=== PATIENT | male | born 1960 | race Caucasian/White ===

== ENCOUNTER 2017-02-13 13:28 | Emergency (ER) | payer OTHER ==
[~2017-02-13] VITALS: Ht 185.4 cm; Wt 83.0 kg
--- OUTSIDE RECORDS SUMMARY | 2017-02-13 13:37 | XMS REPORT ---
Author Author LESLY VALENCIA Organization [employer] Address Unknown Phone Unavailable Care Team Providers Care Knifer Up Name Role Phone LESLY VALENCIA CP Unavailable Allergies, Adverse Reactions, Alerts Substance Reaction Event Type N.K.D.A. Info Not Available Non Drug Allergy Problems Problem Type Condition Code Onset Dates Condition Status Assessment Encounter for dental examination Z01.20 Active Assessment Dental caries on smooth surface penetrating into pulp K02.63 Active Medications Medication Code System Code Instructions Start Date End Date Status Dosage Naproxen [facility] [address]-86 500 MG Orally every 12 hrs Take two tabs immediately then 1 tablet as needed Procedures Procedure Coding System Code Date INTRAORL-PERIAPICAL 1 FILM 20130 CPT-4 D0220 Jun 28, 2015 EXTRAC ERUPTED TOOTH/EXPOSED ROOT CPT-4 D7140 Jun 28, 2015 LTD ORAL EVALUATION - PROBLEM FOCUS CPT-4 D0140 Jun 28, 2015 EXTRAC ERUPTED TOOTH/EXPOSED ROOT CPT-4 D7140 Jun 28, 2015 Vital Signs Date/Time: Jun 28, 2015 Blood Pressure Diastolic 85 mmHg Blood Pressure Systolic 138 mmHg Cardiac Monitoring Heart Rate 76 bpm Results No Known Results Summary Purpose [employer] Submission
--- OUTSIDE RECORDS SUMMARY | 2017-02-13 13:37 | XMS REPORT ---
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 Info Not Available Non Drug Allergy Problems Problem Type Condition Code Onset Dates Condition Status Assessment Ventral hernia without obstruction or gangrene K43.9 Active Medications No Known Medications Procedures Procedure Coding System Code Date Office Visit, Est Pt., Level 4 CPT-4 00575 Jan 04, 2016 Vital Signs Date/Time: Jan 04, 2016 Cardiac Monitoring Heart Rate 76 bpm Weight 182.7 lbs Height 73 in BMI 24.10 Index Blood Pressure Diastolic 74 mmHg Blood Pressure Systolic 118 mmHg Results No Known Results Summary Purpose [employer] Submission
--- OUTSIDE RECORDS SUMMARY | 2017-02-13 13:37 | XMS REPORT ---
Author Author DAMIAN EGAN [facility] Address [address] [place] [address] Care Team Providers Care Licensed Mental Health Counselor Name Role Phone DAMIAN EGAN Unavailable PROBLEMS No Known Problems ALLERGIES Substance Reaction Event Type Date Status N.K.D.A. Unknown Non Drug Allergy Dec, Unknown SOCIAL HISTORY No smoking Hx information available PLAN OF CARE VITAL SIGNS Height 73 in 2016-01-27 Weight 182.2 lbs 2016-01-27 Heart Rate 67 bpm 2016-01-27 Respiratory Rate 16 2016-01-27 BMI 24.04 kg/m2 2016-01-27 Blood pressure systolic 122 mmHg 2016-01-27 Blood pressure diastolic 72 mmHg 2016-01-27 MEDICATIONS No Known Medications RESULTS No Results PROCEDURES Procedure Date Ordered Related Diagnosis Body Site Office Visit, Est Pt., Level 3 Jan 27, 2016 IMMUNIZATIONS No Known Immunizations
--- NOTE | 2017-02-13 14:01 | ED Lower Extremity ---
General Chief Complaint: Lower Extremity Stated Complaint: REBAR DROPPED ON FOOT AT WORK LT FOOT Nursing Triage Note: pt reports a bundle of rebar fell on hit l foot. pt reports pain and tingling to l foot. pt denies any other injury or hitting head. Nursing Sepsis Screen: No Definite Risk Source: patient Exam Limitations: no limitations History of Present Illness Time seen by provider: 13:57 Initial Comments The patient is a 56-year-old white male who presents with complaint of pain in his left foot. 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 A maher was moving a bundle of rebar with an estimated weight of 3000 pounds. The reach was exceeded and the bundle dropped about 6-8 inches across the dorsum of his left foot. There was expected pain and he notes numbness and tingling as well. Onset: just prior to arrival Pain/Injury Location: left foot Method of Injury: direct blow Allergies and Home Medications Allergies Coded Allergies: No Known Drug Allergies (Unverified , 02/13/17) Home Medications No Active Prescriptions or Reported Meds Constitutional: see HPI EENTM: no symptoms reported Respiratory: no symptoms reported Cardiovascular: no symptoms reported Gastrointestinal: no symptoms reported Genitourinary: no symptoms reported Musculoskeletal: see HPI Skin: no symptoms reported Psychiatric/Neurological: No Symptoms Reported Past Stwxiom-Onskmo-Ztvenq Hx Patient Social History Alcohol Use: Occasionally Uses Alcohol Beverage of Choice: Beer Recreational Drug Use: No Smoking Status: Current Everyday Smoker Type Used: Cigarettes Recent Foreign Travel: No Contact w/Someone Who Travel: No Recent Infectious Disease Expo: No Recent Hopitalizations: No Physical Abuse: No Sexual Abuse: No Mistreated: No Seasonal Allergies Seasonal Allergies: No Surgeries History of Surgeries: Yes (hernia repair) Respiratory History of Respiratory Disorde: No Cardiovascular History of Cardiac Disorders: No Neurological History of Neurological Disord: No Genitourinary History of Genitourinary Disor: No Gastrointestinal History of Gastrointestinal Di: No Musculoskeletal History of Musculoskeletal Dis: No Endocrine History of Endocrine Disorders: No HEENT History of HEENT Disorders: No Cancer History of Cancer: No Psychosocial History of Psychiatric Problem: No Suicide Risk Score: 0 Blood Transfusions History of Blood Disorders: No Physical Exam Vital Signs Vital Sign - Last 12Hours 02/13/17 13:47 Temp 97.7 Pulse 78 Resp 18 B/P (MAP) 143/105 Pulse Ox 96 Capillary Refill : Less Than 3 Seconds General Appearance: mild distress HEENT: normal ENT inspection Neck: full range of motion Cardiovascular: normal peripheral pulses, regular rate, rhythm, no edema, no gallop, no JVD, no murmur Respiratory: chest non-tender, lungs clear, normal breath sounds, no respiratory distress, no accessory muscle use Comments No swelling or deformity was noted in the left foot. There is a large bunion which he states he inherited from his grandmother. Capillary refill is normal. There is a palpable dorsalis pedis pulse. Progress/Results/Core Measures Results/Orders My Orders Orders - FRANCISCO DE LA CRUZ MD Foot, Left, 3 Views (02/13/17 ) Vital Signs/I&O Vital Sign - Last 12Hours 02/13/17 13:47 Temp 97.7 Pulse 78 Resp 18 B/P (MAP) 143/105 Pulse Ox 96 Blood Pressure Mean: 118 Departure Impression Impression: Primary Impression: Contusion of foot Disposition: HOME, SELF-CARE Condition: Stable/Unchanged Departure-Patient Inst. Decision time for Depature: 14:26 Referrals: NO,LOCAL PHYSICIAN (PCP) Primary Care Physician Patient Instructions: Contusion (DC) Add. Discharge Instructions: All discharge instructions reviewed with patient and/or family. Voiced understanding. Expect tingling into resolve rather quickly. LaCE your boot loosely Scripts No Active Prescriptions or Reported Meds FRANCISCO DE LA CRUZ MD Feb 13, 2017 14:00
--- NOTE | 2017-02-13 14:18 | Diagnostic Imaging Report ---
EXAMINATION: Three views of the left foot. INDICATION: Left foot pain. FINDINGS: There is a prominent hallux valgus. No fracture, dislocation, or radiopaque foreign body is seen. There are spurs projecting laterally from the anterolateral aspect of the calcaneus, which could be degenerative or posttraumatic. IMPRESSION: Hallux valgus. Dictated by: Dictated on workstation # [id number]
[2017-02-13 14:47] VITALS: BP 142/99
== END 2017-02-13 14:46 | disposition home or self-care (01) ==
LOC: ER 13:34
DX: S90.32XA Contusion of left foot, initial encounter (principal); F17.210 Nicotine dependence, cigarettes, uncomplicated; Z87.19 Personal history of other diseases of the digestive system; W20.8XXA Other cause of strike by thrown, projected or falling object, initial encounter; Y92.239 Unspecified place in hospital as the place of occurrence of the external cause; Y92.69 Other specified industrial and construction area as the place of occurrence of the external cause
CPT/HCPCS: 73630; 99283

== ENCOUNTER 2017-03-03 09:03 | Inpatient (IN) | payer OTHER ==
[~2017-03-03] VITALS: Ht 185.4 cm; Wt 80.7 kg
--- OUTSIDE RECORDS SUMMARY | 2017-03-03 09:08 | XMS REPORT | Continuity of Care Document ---
Author Author [facility] Address Unknown Phone Unavailable Allergies Medications Problems Date Dx Coded Attending Type Code Diagnosis Diagnosed By 05/12/2013 AIXA VEGA MD 726.10 DISORDERS OF BURSAE AND TENDONS IN SHOULDER REGION UNSPECIFIED 05/12/2013 AIXA EVGA MD 728.85 MUSCLE SPASM 05/12/2013 AIXA VEGA MD V04.81 FLU SHOT 05/12/2013 AIXA VEGA MD 726.10 TENDONITIS ROTATOR CUFF 05/12/2013 AIXA VEGA MD 728.85 MUSCLE SPASM 05/12/2013 AIXA VEGA MD V04.81 FLU SHOT Procedures Results Encounters ACCT No. Visit Date/Time Discharge Status Pt. Type Provider Facility Loc./Unit Complaint [id number] 2013 08:31:00 2013 23: 59:59 CLS Outpatient AIXA VEGA MD [id number] 05/12/2013 10:35:00 05/12/2013 23: 59:59 CLS Outpatient AIXA VEGA MD
--- NOTE | 2017-03-03 09:15 | ED Fall/Injury ---
General Stated Complaint: PELVIC/HIP INJ Source: patient Exam Limitations: no limitations History of Present Illness Time seen by provider: 09:01 Initial Comments Patient present to ER by private conveyance with coworkers with a chief complaint that just prior to arrival he was unloading wood off the back tractor trailer proximal 6 feet off the ground and jumped off the trailer but when he landed his right leg buckled underneath him and he landed on his right side. He is having a tremendous amount of pain and unable to walk or l sit up. He was brought in the back of truck to the ER and transferred by gennaro and transferred to the ER. He denies previous trauma to that hip and has no significant medical history nor does he follow with a physician or take any medications. He denies allergies. He smokes and drinks about 12 pack a week. He denies recreational drug use. Denies needing anything for pain or nausea at this time. He has sensation in his foot and is able to move it but not his thigh. He says he also scraped up his right elbow but is not having any significant pain there now. He denies striking his head nor loss of consciousness. Staff reports when they transferred him out of the back of truck depressed all over his back and neck and there is no pain. Allergies and Home Medications Allergies Coded Allergies: No Known Drug Allergies (Unverified , 02/13/17) Home Medications Hydrocodone/Acetaminophen 1 Each Tablet, 1 EACH PO Q6H PRN for PAIN, #30 Ref 0 Prescribed by: CHANEL REYES on 03/03/17 1335 Ondansetron HCl 4 Mg Tab, 4 MG PO Q4H PRN for NAUSEA/VOMITING-1ST LINE, #14 Ref 0 Prescribed by: CHANEL REYES on 03/03/17 1335 Constitutional: No chills, No diaphoresis Eyes: Denies Blindness, Denies Blurred Vision Ears, Nose, Mouth, Throat: denies ear pain, denies ear discharge Respiratory: No cough, No short of breath Cardiovascular: No chest pain, No palpitations Gastrointestinal: No abdominal pain, No constipation, No nausea, No vomiting Genitourinary: No discharge, No dysuria Musculoskeletal: see HPI, No back pain, joint pain, joint swelling (rifhr hip) Skin: No pruritus, No rash Psychiatric/Neurological: Denies Headache, Denies Numbness, Denies Paresthesia Past Lphzrti-Yetfat-Smespb Hx Patient Social History Alcohol Beverage of Choice: Beer (12 pack a week) Recreational Drug Use: No Type Used: Cigarettes Recent Hopitalizations: No Seasonal Allergies Seasonal Allergies: No Surgeries History of Surgeries: Yes (hernia repair) Respiratory History of Respiratory Disorde: No Cardiovascular History of Cardiac Disorders: No Neurological History of Neurological Disord: No Genitourinary History of Genitourinary Disor: No Gastrointestinal History of Gastrointestinal Di: No Musculoskeletal History of Musculoskeletal Dis: No Endocrine History of Endocrine Disorders: No HEENT History of HEENT Disorders: No Cancer History of Cancer: No Psychosocial History of Psychiatric Problem: No Blood Transfusions History of Blood Disorders: No Physical Exam Vital Signs Vital Sign - Last 12Hours 03/03/17 09:03 Temp 98.7 Pulse 65 Resp 18 B/P (MAP) 175/88 Pulse Ox 97 Capillary Refill : General Appearance: WD/WN, moderate distress HEENT: PERRL/EOMI, TMs normal, pharynx normal Neck: non-tender, supple Cardiovascular: normal peripheral pulses, regular rate, rhythm Respiratory: chest non-tender, lungs clear, normal breath sounds Peripheral Pulses: 3+ Dorsalis Pedis (R), 3+ Left Dors-Pedis (L) Gastrointestinal: normal bowel sounds, non tender, soft Back: normal inspection, no vertebral tenderness Extremities: no pedal edema, normal capillary refill, other (right leg is externally rotated and unable to move Degner pain at the thigh. He can move his toes and has good sensation however.) Neurologic/Psychiatric: no motor/sensory deficits, alert, oriented x 3 Skin: normal color, warm/dry Brian Coma Score Best Eye Response: (4) Open Spontaneously Best Verbal Response: (5) Oriented Best Motor Response: (6) Obeys Commands [place] Total: 15 Progress/Results/Core Measures Results/Orders Lab Results Laboratory Tests Test 03/03/17 09:52 03/03/17 11:17 Range/Units White Blood Count 8.1 4.3-11.0 10^3/uL Red Blood Count 4.92 4.35-5.85 10^6/uL Hemoglobin 15.1 13.3-17.7 G/DL Hematocrit 45 40-54 % Mean Corpuscular Volume 91 80-99 FL Mean Corpuscular Hemoglobin 31 25-34 PG Mean Corpuscular Hemoglobin Concent 34 32-36 G/DL Red Cell Distribution Width 12.7 10.0-14.5 % Platelet Count 151 130-400 10^3/uL Mean Platelet Volume 11.7 H 7.4-10.4 FL Neutrophils (%) (Auto) 73 42-75 % Lymphocytes (%) (Auto) 15 12-44 % Monocytes (%) (Auto) 10 0-12 % Eosinophils (%) (Auto) 2 0-10 % Basophils (%) (Auto) 1 0-10 % Neutrophils # (Auto) 5.9 1.8-7.8 X 10^3 Lymphocytes # (Auto) 1.2 1.0-4.0 X 10^3 Monocytes # (Auto) 0.8 0.0-1.0 X 10^3 Eosinophils # (Auto) 0.1 0.0-0.3 10^3/uL Basophils # (Auto) 0.1 0.0-0.1 10^3/uL Sodium Level 139 135-145 MMOL/L Potassium Level 4.0 3.6-5.0 MMOL/L Chloride Level 107 98-107 MMOL/L Carbon Dioxide Level 21 21-32 MMOL/L Anion Gap 11 5-14 MMOL/L Blood Urea Nitrogen 11 7-18 MG/DL Creatinine 0.80 0.60-1.30 MG/DL Estimat Glomerular Filtration Rate > 60 BUN/Creatinine Ratio 14 Glucose Level 122 H 70-105 MG/DL Calcium Level 8.7 8.5-10.1 MG/DL Total Bilirubin 0.5 0.1-1.0 MG/DL Aspartate Amino Transf (AST/SGOT) 30 5-34 U/L Alanine Aminotransferase (ALT/SGPT) 30 0-55 U/L Alkaline Phosphatase 50 40-136 U/L Total Protein 6.7 6.4-8.2 GM/DL Albumin 4.0 3.2-4.5 GM/DL Urine Color YELLOW Urine Clarity CLEAR Urine pH 6 5-9 Urine Specific Varina 1.015 L 1.016-1.022 Urine Protein NEGATIVE NEGATIVE Urine Glucose (UA) NEGATIVE NEGATIVE Urine Ketones NEGATIVE NEGATIVE Urine Nitrite NEGATIVE NEGATIVE Urine Bilirubin NEGATIVE NEGATIVE Urine Urobilinogen NORMAL NORMAL MG/DL Urine Leukocyte Esterase NEGATIVE NEGATIVE Urine RBC (Auto) NEGATIVE NEGATIVE Urine RBC NONE /HPF Urine WBC NONE /HPF Urine Squamous Epithelial Cells RARE /HPF Urine Crystals NONE /LPF Urine Bacteria NEGATIVE /HPF Urine Casts NONE /LPF Urine Mucus NEGATIVE /LPF Urine Culture Indicated NO Urine Opiates Screen NEGATIVE NEGATIVE Urine Oxycodone Screen NEGATIVE NEGATIVE Urine Methadone Screen NEGATIVE NEGATIVE Urine Propoxyphene Screen NEGATIVE NEGATIVE Urine Barbiturates Screen NEGATIVE NEGATIVE Ur Tricyclic Antidepressants Screen NEGATIVE NEGATIVE Urine Phencyclidine Screen NEGATIVE NEGATIVE Urine Amphetamines Screen NEGATIVE NEGATIVE Urine Methamphetamines Screen NEGATIVE NEGATIVE Urine Benzodiazepines Screen NEGATIVE NEGATIVE Urine Cocaine Screen NEGATIVE NEGATIVE Urine Cannabinoids Screen POSITIVE H NEGATIVE My Orders Orders - CHANEL REYES J Hip, Right, 2 Views (03/03/17 09:08) Cbc With Automated Diff (03/03/17 09:08) Comprehensive Metabolic Panel (03/03/17 09:08) Drug Screen Stat (Urine) (03/03/17 09:08) Ua Culture If Indicated (03/03/17 09:08) Saline Lock/Iv-Start (03/03/17 09:09) Ketorolac Injection (Toradol Injection) (03/03/17 09:30) Ct Extremity Lower Right Wo (03/03/17 11:19) Fentanyl Injection (Sublimaze Injection (03/03/17 11:30) Hydrocodone/Apap 10/325 Tablet (Lortab 1 (03/03/17 13:45) Ondansetron Oral Dissolve Tab (Zofran (03/03/17 13:45) Medications Given in ED Current Medications Medications Dose Ordered Sig/Jamie Route Start Time Stop Time Status Last Admin Dose Admin Acetaminophen/ Hydrocodone Bitart 1 ea ONCE ONCE PO 03/03/17 13:45 03/03/17 13:46 DC 03/03/17 13:49 1 EA Fentanyl Citrate 50 mcg ONCE ONCE IVP 03/03/17 11:30 03/03/17 11:32 DC 03/03/17 11:35 50 MCG Ketorolac Tromethamine 15 mg ONCE ONCE IM 03/03/17 09:30 03/03/17 09:31 DC 03/03/17 10:47 15 MG Ondansetron HCl 4 mg ONCE ONCE PO 03/03/17 13:45 03/03/17 13:46 DC 03/03/17 13:49 4 MG Vital Signs/I&O Vital Sign - Last 12Hours 03/03/17 09:03 Temp 98.7 Pulse 65 Resp 18 B/P (MAP) 175/88 Pulse Ox 97 Progress Note #1: Time: 13:31 Progress Note Offered the patient observation stay for physical therapy and pain management and the patient declined stating rather go home today. Progress Note #2: Time: 15:03 Progress Note Patient unable to stand up transfer ambulate at all on its own even with the crutches and pain meds. He cannot even put pressure on the contralateral leg because of the pain so we have offered him an observation stay with inpatient medicine for physical therapy and pain management. He is consented this time for this. Diagnostic Imaging Diagonstic Imaging: Xray Plain Films/CT/US/NM/MRI: hip (right) Comments NAME: ANDREW BURRIS [facility] REC#: [id number] PHYSICIAN: CHANEL REYES MD CC: ALTHEA OCHOA MD; CHANEL REYES Page 1 of 1 RADIOLOGY REPORT VIA [facility]. [place], [place] CC: ALTHEA OCHOA MD; CHANEL REYES Page 1 of 1 RADIOLOGY REPORT NAME: ANDREW BURRIS [facility] REC#: [id number] PT STATUS: REG ER : 1960 PHYSICIAN: CHANEL REYES MD ADMIT DATE: 03/03/17/ER Signed Date of Exam: 03/03/17 HIP, RIGHT, 2 VIEWS AP and crosstable lateral views of the right hip. INDICATION: Injury. FINDINGS: There is a nondisplaced intertrochanteric fracture seen. There is no subluxation or dislocation. No radiopaque foreign body is seen. IMPRESSION: Nondisplaced right intertrochanteric fracture. The findings were discussed with Dr. Reyes at time of dictation. Dictated by: Dictated on workstation # [id number] Dict: 03/03/17 1046 Trans: 03/03/17 1055 Interpreted by: ALTHEA OCHOA MD Electronically signed by: ALTHEA OCHOA MD 03/03/17 1055 Reviewed: Reviewed by Me, Discussed w/Radiologist Consults Consults : Consulting Physician: LYDIA DELUNA MD Consults Notes Discussed and reviewed imaging 1110. He is requesting CT of the right femur. 1215: Dr. DELUNA met with the patient and discussed crutches, pain management, toe-touch only and follow-up in the clinic in one week. Departure Communication (Admissions) Time/Spoke to Admitting Phy: 14:[address] Olivas and he recommends pain management and consultation regi in the morning. Impression Impression: Primary Impression: Trochanteric fracture of right femur Qualified Codes: S72.101A - Unspecified trochanteric fracture of right femur, initial encounter for closed fracture Additional Impression: Fall Qualified Codes: W19.XXXA - Unspecified fall, initial encounter Disposition: ADMITTED INPATIENT Condition: Stable Admissions Decision to Admit Reason: Admit from ER (General) Decision to Admit/Date: Mar 03, 2017 Time/Decision to Admit Time: 14:57 Departure-Patient Inst. Referrals: NO,LOCAL PHYSICIAN (PCP/Family) Primary Care Physician Patient Instructions: Femur Fracture (DC) Add. Discharge Instructions: Drink plenty of water and get some MiraLAX or Dulcolax to be taken every day when you're taking the pain meds. Use the pain meds as needed every 6 hours to make yourself functional and mobile. Use the crutches and do not allow your leg on the right side to have any more pressure on it other than toe-touch. Call doctor [facility] at [address] at [phone] today or tomorrow to get an appointment on Friday per Dr. Deluna's instructions. If you're having nausea take Zofran 1 tablet every 4 hours as needed to control the nausea. Try and stay mobile around the house do not lay in bed all day. You may also use Motrin 800 mg every 8 hours and Tylenol 325 or 500 mg every 8 hours. If he develops severe pain that is not controlled by her medicines or intractable nausea and vomiting or fevers or chest pain or shortness of breath return to the ER for evaluation. Opiates can cause drowsiness so he should not operate heavy machinery or take long road trips and do not mix them with alcohol. Scripts Ondansetron HCl (Zofran) 4 Mg Tab 4 MG PO Q4H Y for NAUSEA/VOMITING-1ST LINE, #14 TAB 0 Refills Prov: CHANEL REYES 03/03/17 Hydrocodone/Acetaminophen (Hydrocodon-Acetaminophn 10-325) 1 Each Tablet 1 EACH PO Q6H Y for PAIN, #30 TAB 0 Refills Prov: CHANEL REYES 03/03/17 Work/School Note: Work Release Form Date Seen in the Emergency Department: Mar 03, 2017 Return to Work: Mar 11, 2017 Restrictions: Need Release from Doctor Copy Copies To 1: LYDIA DELUNA MD Copies To 2: FRANCISCO DE LA CRUZ MD, TITUS J Mar 03, 2017 09:15
[2017-03-03] MEDS ORDERED: KETOROLAC 30 MG/ML VIAL IM ONE (09:30)
[2017-03-03 09:57] LABS: BASOPHILS # (AUTO) 0.1 10^3/uL (0.0-0.1); BASOPHILS % (AUTO) 1 % (0-10); EOSINOPHILS # (AUTO) 0.1 10^3/uL (0.0-0.3); EOSINOPHILS % (AUTO) 2 % (0-10); LYMPHOCYTES # (AUTO) 1.2 X 10^3 (1.0-4.0); LYMPHOCYTES % (AUTO) 15 % (12-44); MEAN CORPUSCULAR HEMOGLOBIN 31 PG (25-34); MEAN CORPUSCULAR HGB CONC 34 G/DL (32-36); MEAN CORPUSCULAR VOLUME 91 FL (80-99); MEAN PLATELET VOLUME 11.7 FL (7.4-10.4); MONOCYTES # (AUTO) 0.8 X 10^3 (0.0-1.0); MONOCYTES % (AUTO) 10 % (0-12); NEUTROPHILS # (AUTO) 5.9 X 10^3 (1.8-7.8); NEUTROPHILS % (AUTO) 73 % (42-75); PLATELET COUNT 151 10^3/uL (130-400); RED BLOOD COUNT 4.92 10^6/uL (4.35-5.85); RED CELL DISTRIBUTION WIDTH 12.7 % (10.0-14.5); WHITE BLOOD COUNT 8.1 10^3/uL (4.3-11.0)
[2017-03-03 10:15] LABS: ALANINE AMINOTRANSFERASE 30 U/L (0-55); ANION GAP 11 MMOL/L (5-14); ASPARTATE AMINO TRANSFERASE 30 U/L (5-34); BILIRUBIN,TOTAL 0.5 MG/DL (0.1-1.0); BLOOD UREA NITROGEN 11 MG/DL (7-18); BUN/CREATININE RATIO 14; CALCIUM 8.7 MG/DL (8.5-10.1); CARBON DIOXIDE 21 MMOL/L (21-32); CHLORIDE 107 MMOL/L (98-107); GFR ESTIMATED > 60; GLUCOSE 122 MG/DL (70-105); SODIUM 139 MMOL/L (135-145); TOTAL PROTEIN 6.7 GM/DL (6.4-8.2)
--- NOTE | 2017-03-03 10:52 | Diagnostic Imaging Report ---
AP and crosstable lateral views of the right hip. INDICATION: Injury. FINDINGS: There is a nondisplaced intertrochanteric fracture seen. There is no subluxation or dislocation. No radiopaque foreign body is seen. IMPRESSION: Nondisplaced right intertrochanteric fracture. The findings were discussed with Dr. Reyes at time of dictation. Dictated by: Dictated on workstation # [id number]
[2017-03-03] MEDS ORDERED: fentaNYL INJECTION 100 MCG/2 ML AMP IVP ONE (11:30)
[2017-03-03 11:31] LABS: BILIRUBIN,URINE NEGATIVE (NEGATIVE); KETONES,URINE NEGATIVE (NEGATIVE); LEUKOCYTE ESTERASE ,URINE NEGATIVE (NEGATIVE); NITRITE,URINE NEGATIVE (NEGATIVE); PH,URINE 6 (5-9); PROTEIN,URINE NEGATIVE (NEGATIVE); UROBILINOGEN,URINE NORMAL (NORMAL)
[2017-03-03 11:39] LABS: SQUAMOUS EPITHELIAL CELL,UR RARE /HPF
--- NOTE | 2017-03-03 12:06 | Diagnostic Imaging Report ---
PROCEDURE: CT right lower extremity without contrast. TECHNIQUE: An axially acquired CT was obtained through the right lower extremity without intravenous contrast. Coronal and sagittal reformations were also performed. INDICATION: Right hip injury. FINDINGS: There is a right intertrochanteric fracture seen with no significant displacement. There is comminution noted with minimal displacement at the level of the greater trochanter. The femoral head and femoral shaft appear unremarkable. There is no subluxation or dislocation. No radiopaque foreign body is seen. IMPRESSION: Right intertrochanteric fracture with mild displacement and comminution at the greater trochanter level. Dictated by: Dictated on workstation # [id number]
[2017-03-03] MEDS ORDERED: ONDN4T PO (13:35)
[2017-03-03] MEDS ORDERED: HYDR-3820 PO (13:35)
[2017-03-03] MEDS ORDERED: HYDROcodone/APAP 10 MG/325 MG (LORTAB) TAB PO ONE (13:45)
[2017-03-03] MEDS ORDERED: ONDANSETRON 4 MG (ZOFRAN) ORAL DISSOLVE TAB PO ONE (13:45)
[2017-03-03 15:45] VITALS: BP 137/82
[2017-03-03] MEDS ORDERED: HYDROcodone/APAP 10 MG/325 MG (LORTAB) TAB PO PRN (16:15)
[2017-03-03] MEDS ORDERED: ONDANSETRON 4 MG/2 ML (SDV) Z0FRAN IV PRN (16:15)
[2017-03-03] MEDS ORDERED: fentaNYL INJECTION 100 MCG/2 ML AMP IV PRN (16:15)
--- OUTSIDE RECORDS SUMMARY | 2017-03-03 16:23 | XMS REPORT | Continuity of Care Document ---
Author Author [facility] Address Unknown Phone Unavailable Allergies Medications Problems Date Dx Coded Attending Type Code Diagnosis Diagnosed By 05/12/2013 AIXA VEGA MD 726.10 DISORDERS OF BURSAE AND TENDONS IN SHOULDER REGION UNSPECIFIED 05/12/2013 AIXA VEGA MD 728.85 MUSCLE SPASM 05/12/2013 AIXA VEGA MD V04.81 FLU SHOT 05/12/2013 AIXA VEGA MD 726.10 TENDONITIS ROTATOR CUFF 05/12/2013 AIXA VEGA MD 728.85 MUSCLE SPASM 05/12/2013 AIXA VEGA MD V04.81 FLU SHOT Procedures Results Encounters ACCT No. Visit Date/Time Discharge Status Pt. Type Provider Facility Loc./Unit Complaint [id number] 2013 08:31:00 2013 23: 59:59 CLS Outpatient AIXA VEGA MD [id number] 05/12/2013 10:35:00 05/12/2013 23: 59:59 CLS Outpatient AIXA VEAG MD
[2017-03-03] MEDS ORDERED: INFLUENZA TRIvalent 2017-2018 0.5 ML/45 MCG SYR IM ONE (16:45)
[2017-03-03 20:13] VITALS: BP 121/66
[2017-03-03] MEDS: CATHETER FLUSH 10 ML SYR IV PRN (20:46)
[2017-03-03] MEDS: fentaNYL INJECTION 100 MCG/2 ML AMP IV PRN (20:46)
[2017-03-03] MEDS: HYDROcodone/APAP 10 MG/325 MG (LORTAB) TAB PO PRN (23:51)
[2017-03-04 00:30] VITALS: BP 126/68
[2017-03-04] MEDS: fentaNYL INJECTION 100 MCG/2 ML AMP IV PRN ×6 (04:05→19:01)
[2017-03-04] MEDS: CATHETER FLUSH 10 ML SYR IV PRN (04:29)
[2017-03-04] MEDS: NS IV 1000 ML 1,000 ML IV SCH ×2 (04:29→14:19)
[2017-03-04 04:45] VITALS: BP 138/77
[2017-03-04 06:26] LABS: BASOPHILS % (AUTO) 0 % (0-10); EOSINOPHILS # (AUTO) 0.1 10^3/uL (0.0-0.3); EOSINOPHILS % (AUTO) 2 % (0-10); LYMPHOCYTES # (AUTO) 1.2 X 10^3 (1.0-4.0); LYMPHOCYTES % (AUTO) 13 % (12-44); MEAN CORPUSCULAR HEMOGLOBIN 31 PG (25-34); MEAN CORPUSCULAR HGB CONC 34 G/DL (32-36); MEAN CORPUSCULAR VOLUME 92 FL (80-99); MEAN PLATELET VOLUME 11.9 FL (7.4-10.4); MONOCYTES # (AUTO) 1.2 X 10^3 (0.0-1.0); MONOCYTES % (AUTO) 14 % (0-12); NEUTROPHILS # (AUTO) 6.1 X 10^3 (1.8-7.8); NEUTROPHILS % (AUTO) 70 % (42-75); PLATELET COUNT 139 10^3/uL (130-400); RED CELL DISTRIBUTION WIDTH 12.7 % (10.0-14.5); WHITE BLOOD COUNT 8.6 10^3/uL (4.3-11.0)
[2017-03-04 06:47] LABS: ANION GAP 7 MMOL/L (5-14); BLOOD UREA NITROGEN 11 MG/DL (7-18); BUN/CREATININE RATIO 14; CALCIUM 9.1 MG/DL (8.5-10.1); CARBON DIOXIDE 26 MMOL/L (21-32); CHLORIDE 106 MMOL/L (98-107); CREATININE SERUM 0.77 MG/DL (0.60-1.30); GFR ESTIMATED > 60; GLUCOSE 104 MG/DL (70-105); SODIUM 139 MMOL/L (135-145)
--- NOTE | 2017-03-04 07:22 | CONSULTATION REPORT ---
DATE OF SERVICE: 03/03/2017 ORTHOPEDIC CONSULTATION CHIEF COMPLAINT: Fall, hip pain. 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 He is currently awake and alert in the Emergency Department at [facility] with injuries to his right hip. He denies other injuries now, otherwise without complaint. PAST MEDICAL HISTORY: None. PAST SURGERIES: Hernia repair. MEDICATIONS: None. ALLERGIES: None. SOCIAL HISTORY: He smokes less than a pack a day. Drinks alcohol to a small degree daily. Denies any alcohol use today. Has occasional use of marijuana, last time over the weekend. Denies any other drug use. FAMILY HISTORY: Noncontributory. REVIEW OF SYSTEMS: Otherwise unremarkable. ON EXAMINATION: GENERAL: Awake, alert male, denies any injury. EXTREMITIES: Examination of the bilateral upper and left lower extremity fails to showing any swelling, deformity besides acute trauma, right lower extremity. Everywhere else tenderness over his trochanter. His skin is intact distally. Neurovascularly intact. No other focal findings. IMAGING STUDIES: Plain x-ray and CT scan demonstrate a minimally displaced fracture of the greater trochanter that is comminuted. It extends down towards the base and the intertrochanteric neck and lesser trochanter region, but it is not a through and through fracture. IMPRESSION: Right closed greater trochanteric fracture. RECOMMENDATIONS: At this point, a very careful and thorough discussion was held with the patient and the friend that was with him about the importance of being toe touch weight-bearing and that if he steps on this too aggressively, has any further falls or injuries to this, he could displace this fracture and require either open reduction internal fixation and/or hemiarthroplasty or a total. The patient clearly relates understanding and opts for nonoperative treatment. We have discussed at length the possibility of doing preventative internal fixation to prevent progression of his fracture, but at this point, he desires nonoperative care and states that he will be careful. He will follow up next week for repeat imaging. Job ID: [id number] DocumentID: [id number] Dictated Date: 03/03/2017 12:41:12 Veterinary Milk Specialist Date: 03/03/2017 13:07:49 Dictated By: LYDIA WAGNER MD [facility]
[2017-03-04 08:00] VITALS: BP 122/76
[2017-03-04] MEDS: HYDROcodone/APAP 10 MG/325 MG (LORTAB) TAB PO PRN ×2 (09:24→23:28)
--- NOTE | 2017-03-04 10:21 | History & Physical-Hospitalist ---
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 He reports that he is feeling okay other than pain and denies any chest pain or shortness of breath. He does smoke but he does not drink an excessive amount of alcohol every day but he does drink in excess of 1 week and night once weekly. Source: patient Exam Limitations: no limitations Date Seen 03/04/17 Time Seen by Provider: 09:45 Attending Physician Roberto Hansen MD PCP No,Local Physician Referring Physician LYDIA WAGNER MD Date of Admission Mar 03, 2017 at 15:08 Home Medications & Allergies Home Medications Reviewed patient Home Medication Reconciliation Form Allergies Allergies Coded Allergies No Known Drug Allergies (Pdxnaashsr33/2/17) Past Myoagoj-Ykifpc-Rjhwfh Hx Patient Social History Marrital Status: Employed/Student: employed Alcohol Use: Occasionally Uses Number of Drinks Today: 0 Alcohol Beverage of Choice: Beer Recreational Drug Use: Yes Drug of Choice: MARIJUANA Smoking Status: Current Everyday Smoker Type Used: Cigarettes Physical Abuse Screen: No Sexual Abuse: No Recent Foreign Travel: No Contact w/other who traveled: No Recent Hopitalizations: No Recent Infectious Disease Expo: No Seasonal Allergies Seasonal Allergies: No Surgeries Yes (hernia repair) Respiratory No Cardiovascular No Neurological No Genitourinary No Gastrointestinal No Musculoskeletal Yes (CURRENT RT HIP FX) Endocrine History of Endocrine Disorders: No HEENT History of HEENT Disorders: No Cancer No Psychosocial History of Psychiatric Problem: No Integumentary History of Skin or Integumenta: No Blood Transfusions History of Blood Disorders: No Family Medical History Family Hx: Cardiovascular disease Diabetes mellitus Glaucoma Neoplasm Review of Systems Constitutional: see HPI EENTM: no symptoms reported Respiratory: no symptoms reported Cardiovascular: no symptoms reported Gastrointestinal: no symptoms reported Genitourinary: no symptoms reported Musculoskeletal: joint pain (right hip pain) Skin: no symptoms reported Psychiatric/Neurological: No Symptoms Reported Physical Exam Physical Exam Vital Signs Vital Sign - Last 12Hours 03/03/17 09:03 Temp 98.7 Pulse 65 Resp 18 B/P (MAP) 175/88 Pulse Ox 97 Capillary Refill : Less Than 3 SecondsLess Than 3 Seconds General Appearance: No Apparent Distress, WD/WN Eyes: Bilateral Eye Normal Inspection, Bilateral Eye PERRL HEENT: PERRL/EOMI, Normal ENT Inspection, Pharynx Normal Neck: Full Range of Motion, Normal Inspection, Non Tender, Supple, Carotid Bruit Respiratory: Chest Non Tender, Lungs Clear, Normal Breath Sounds, No Accessory Muscle Use, No Respiratory Distress Cardiovascular: Regular Rate, Rhythm, No Edema, No Gallop, No JVD, No Murmur, Normal Peripheral Pulses Gastrointestinal: Normal Bowel Sounds, No Organomegaly, No Pulsatile Mass, Non Tender, Soft Back: Normal Inspection, No CVA Tenderness, No Vertebral Tenderness Extremity: Normal Capillary Refill, Normal Inspection, Normal Range of Motion, Non Tender, No Calf Tenderness, No Pedal Edema Neurologic/Psychiatric: Alert, Oriented x3, No Motor/Sensory Deficits, Normal Mood/Affect Skin: Normal Color, Warm/Dry Lymphatic: No Adenopathy Results Results/Procedures Lab Laboratory Tests 03/03/17 09:52 03/04/17 06:13 Assessment/Plan Admission Diagnosis Assessment: s/p right closed greater trochanteric fracture Smoker Alcohol use but does not appear to be at risk for withdrawal Assessment and Plan Plan: Proceed on with surgery repair since benefits outweigh medical risk Incentive spirometry use May need nebulizer treatments but clear to auscultation on exam today Pain control DVT prophylaxis per protocol Clinical Quality Measures DVT/VTE Risk/Contraindication: Risk Factor Score Per Nursin RFS Level Per Nursing on Admit: 4+=Very High JOSE MILLIGAN DO Mar 04, 2017 10:21
[2017-03-04 12:00] VITALS: BP 114/71
[2017-03-04] MEDS ORDERED: MIDAZOLAM 2 MG/2 ML (VERSED) VIAL ONE (14:56)
[2017-03-04] MEDS ORDERED: fentaNYL INJECTION 250 MCG/5 ML AMP ONE (14:56)
[2017-03-04] MEDS ORDERED: proPOfol 200 MG/20 ML (DIPRIVAN) VIAL IV ONE (14:56)
[2017-03-04] MEDS ORDERED: SEVOFLURANE (ULTANE) 15 ML INHAL SOLN ONE ×7 (14:56→17:18)
[2017-03-04] MEDS: LACTATED RINGERS 1,000 ML IV PRN ×2 (15:00→16:50)
--- NOTE | 2017-03-04 15:32 | Progress Note (SOAP) ---
Subjective Time Seen by Provider: 15:30 Subjective/Events-last exam Patient desires to have his hip fixed as we discussed instead of non-operative care. Objective Exam Vital Signs Date Time Temp Pulse Resp B/P (MAP) Pulse Ox O2 Delivery O2 Flow Rate FiO2 03/04/17 12:00 98.4 63 20 114/71 97 Room Air 03/04/17 08:00 98.5 64 20 122/76 97 Room Air 03/04/17 04:45 98.3 67 20 138/77 96 Room Air 03/04/17 00:30 98.5 67 20 126/68 97 Room Air 03/03/17 20:13 98.6 68 20 121/66 97 Room Air 03/03/17 15:45 99 Room Air 03/03/17 15:45 99.3 66 18 137/82 99 Room Air Capillary Refill : Less Than 3 SecondsLess Than 3 Seconds General Appearance: Moderate Distress Results Lab Laboratory Tests 03/04/17 06:13: White Blood Count 8.6, Red Blood Count 4.30L, Hemoglobin 13.3, Hematocrit 40, Mean Corpuscular Volume 92, Mean Corpuscular Hemoglobin 31, Mean Corpuscular Hemoglobin Concent 34, Red Cell Distribution Width 12.7, Platelet Count 139, Mean Platelet Volume 11.9H, Neutrophils (%) (Auto) 70, Lymphocytes (%) (Auto) 13 , Monocytes (%) (Auto) 14H, Eosinophils (%) (Auto) 2, Basophils (%) (Auto) 0, Neutrophils # (Auto) 6.1, Lymphocytes # (Auto) 1.2, Monocytes # (Auto) 1.2H, Eosinophils # (Auto) 0.1, Basophils # (Auto) 0.0, Sodium Level 139, Potassium Level 4.0, Chloride Level 106, Carbon Dioxide Level 26, Anion Gap 7, Blood Urea Nitrogen 11, Creatinine 0.77, Estimat Glomerular Filtration Rate > 60, BUN/ Creatinine Ratio 14, Glucose Level 104, Calcium Level 9.1 Assessment/Plan Assessment/Plan Assess & Plan/Chief Complaint Right Hip Greater Trochanter Fracture/intertroch fracture Closed Plan: Right hip open reduction and internal fixation, with fixation of greater trochanter. Clinical Quality Measures DVT/VTE Risk/Contraindication: Risk Factor Score Per Nursin RFS Level Per Nursing on Admit: 4+=Very High LYDIA WAGNER MD Mar 04, 2017 3:32 pm
[2017-03-04] MEDS ORDERED: ceFAZolin 1,000 MG (ANCEF) VIAL ONE (15:36)
[2017-03-04] MEDS ORDERED: morphine INJ 10 MG/ML 1ML (SYR OR VIAL) ONE (16:20)
[2017-03-04] MEDS ORDERED: ceFAZolin 2 GM/50 ML NS 50 ML IV ONE (16:30)
[2017-03-04] MEDS ORDERED: ROCURONIUM 50 MG/5 ML (ZEMURON) VIAL IV ONE (17:18)
[2017-03-04] MEDS ORDERED: ONDANSETRON 4 MG/2 ML (SDV) Z0FRAN ONE (17:18)
--- NOTE | 2017-03-04 17:48 | Diagnostic Imaging Report ---
INDICATION: Right hip pain. TECHNIQUE: 99.8 seconds of fluoroscopy was used by Dr. eDluna during internal fixation of the proximal right femur. FINDINGS / IMPRESSION: Four digital images submitted from the procedure show fixation hardware securing the proximal femur in good alignment. Dictated by: Dictated on workstation # [id number]
--- NOTE | 2017-03-04 17:50 | Progress Note-Post Operative ---
Post-Operative Progess Note Surgeon (s)/Director Content Marketing (s) Surgeon LYDIA WAGNER MD Director Content Marketing: FATMATA Peters Pre-Operative Diagnosis Right Greater Trochanter Fracture, with inter-troch extension Post-Operative Diagnosis Same Procedure & Operative Findings Date of Procedure 03/04/17 Procedure Performed/Findings ORIF right hip fracture Anesthesia Type GETA Estimated Blood Loss Estimated blood loss (mL): 450 Specimens/Packing Specimens Removed none LYDIA WAGNER MD Mar 04, 2017 5:50 pm
[2017-03-04] MEDS ORDERED: ONDANSETRON 4 MG/2 ML (SDV) Z0FRAN IVP PRN (18:15)
[2017-03-04] MEDS ORDERED: morphine INJ 10 MG/ML 1ML (SYR OR VIAL) IVP PRN (18:15)
[2017-03-04] MEDS ORDERED: KETOROLAC 30 MG/ML VIAL IVP ONE (18:15)
[2017-03-04 18:51] VITALS: BP 165/81
[2017-03-04 20:39] VITALS: BP 152/90
[2017-03-04] MEDS: ceFAZolin 2 GM/50 ML NS 50 ML IV SCH (23:05)
[2017-03-05 00:13] VITALS: BP 133/70
[2017-03-05] MEDS: NS IV 1000 ML 1,000 ML IV SCH ×3 (01:33→23:17)
[2017-03-05] MEDS: fentaNYL INJECTION 100 MCG/2 ML AMP IV PRN ×3 (01:34→16:48)
[2017-03-05] MEDS: IBUPROFEN 800 MG (MOTRIN) TAB PO PRN ×2 (03:58→14:43)
[2017-03-05 04:27] VITALS: BP 133/71
[2017-03-05 06:24] LABS: MEAN PLATELET VOLUME 12.4 FL (7.4-10.4); RED BLOOD COUNT 3.31 10^6/uL (4.35-5.85); RED CELL DISTRIBUTION WIDTH 12.2 % (10.0-14.5); WHITE BLOOD COUNT 8.1 10^3/uL (4.3-11.0)
--- NOTE | 2017-03-05 06:30 | Progress Note (SOAP) ---
Subjective Time Seen by Provider: 06:29 Subjective/Events-last exam Pain ok, can move leg better. Wants to go home, but hasn't been up with PT or out of bed at all. Objective Exam Vital Signs Date Time Temp Pulse Resp B/P (MAP) Pulse Ox O2 Delivery O2 Flow Rate FiO2 03/05/17 04:27 100.4 86 20 133/71 97 Room Air 03/05/17 03:58 100.4 03/05/17 00:13 100.3 82 20 133/70 97 Room Air 03/04/17 21:00 Room Air 03/04/17 20:39 97.2 71 20 152/90 97 Room Air 03/04/17 19:06 Room Air 03/04/17 18:51 98.0 73 18 165/81 95 Room Air 03/04/17 12:00 98.4 63 20 114/71 97 Room Air 03/04/17 08:00 98.5 64 20 122/76 97 Room Air Capillary Refill : Less Than 3 SecondsLess Than 3 Seconds General Appearance: No Apparent Distress Respiratory: No Accessory Muscle Use, No Respiratory Distress Cardiovascular: Regular Rate, Rhythm Gastrointestinal: soft Extremity: Normal Capillary Refill, No Calf Tenderness, No Pedal Edema Neurologic/Psychiatric: Alert, Oriented x3, No Motor/Sensory Deficits Results Lab Laboratory Tests 03/05/17 05:56: White Blood Count 8.1, Red Blood Count 3.31L, Hemoglobin 10.4#L, Hematocrit 31L , Mean Corpuscular Volume 94, Mean Corpuscular Hemoglobin 31, Mean Corpuscular Hemoglobin Concent 34, Red Cell Distribution Width 12.2, Platelet Count 130, Mean Platelet Volume 12.4H Assessment/Plan Assessment/Plan Assess & Plan/Chief Complaint Right Hip Greater Trochanter Fracture/intertroch fracture Closed S/P ORIF Plan: Up with PT, maybe home tmrw, see how he does. Clinical Quality Measures DVT/VTE Risk/Contraindication: Risk Factor Score Per Nursin RFS Level Per Nursing on Admit: 4+=Very High LYDIA WAGNER MD Mar 05, 2017 6:30 am
[2017-03-05] MEDS: ceFAZolin 2 GM/50 ML NS 50 ML IV SCH ×2 (06:33→14:43)
[2017-03-05 06:37] LABS: ALANINE AMINOTRANSFERASE 20 U/L (0-55); ANION GAP 8 MMOL/L (5-14); ASPARTATE AMINO TRANSFERASE 37 U/L (5-34); BLOOD UREA NITROGEN 9 MG/DL (7-18); BUN/CREATININE RATIO 12; CARBON DIOXIDE 25 MMOL/L (21-32); CHLORIDE 104 MMOL/L (98-107); CREATININE SERUM 0.76 MG/DL (0.60-1.30); GFR ESTIMATED > 60; GLUCOSE 102 MG/DL (70-105); POTASSIUM 3.7 MMOL/L (3.6-5.0); SODIUM 137 MMOL/L (135-145); TOTAL PROTEIN 5.1 GM/DL (6.4-8.2)
[2017-03-05 06:47] LABS: ALBUMIN 3.2 GM/DL (3.2-4.5)
[2017-03-05 07:47] VITALS: BP 113/56
[2017-03-05] MEDS: HYDROcodone/APAP 10 MG/325 MG (LORTAB) TAB PO PRN ×4 (07:54→23:03)
[2017-03-05] MEDS: NICOTINE 21 MG (NICODERM) PATCH TD SCH (08:31)
[2017-03-05] MEDS: diphenhydrAMINE 25 MG TAB (BENADRYL) PO PRN ×3 (08:31→23:05)
--- NOTE | 2017-03-05 09:27 | OPERATIVE REPORT ---
DATE OF SERVICE: 03/04/2017 PREOPERATIVE DIAGNOSIS: Right closed greater trochanteric hip fracture with intertrochanteric extension, minimally to nondisplaced. POSTOPERATIVE DIAGNOSIS: Right closed greater trochanteric hip fracture with intertrochanteric extension, minimally to nondisplaced. PROCEDURE PERFORMED: Open reduction internal fixation of right intertrochanteric hip fracture and fixation of greater trochanter fracture. IMPLANTS USED: Synthes DHS 4-hole screw and sideplate and Synthes trochanteric fixation plate and cables and 6.5 screws. SURGEON: Dr. Deluna. VP CARDIOVASCULAR SERVICE LINE: , YOSELYN. GOVERNMENT PROFESSOR: Aid in retraction for the procedure, aid in fracture reduction, implantation of instrumentation and wound closure. ANESTHESIA: General endotracheal. ESTIMATED BLOOD LOSS: 450 mL. IV FLUIDS: Please see anesthesia records. ANTIBIOTICS: Ancef. COMPLICATIONS: None. INDICATIONS FOR PROCEDURE: The patient is a 56-year-old male who was injured on the job. He sustained the fracture above. We discussed nonoperative verses operative treatment. He initially elected for nonoperative care and then had thought about it and elected for operative treatment due to the high risk for displacement. Risks, benefits and alternatives were discussed and he desires to proceed. DESCRIPTION OF PROCEDURE: The patient was taken to the preoperative holding area and brought back to the operative suite. After adequate induction of general anesthetic, preoperative antibiotics, the patient was placed supine on the fracture table, sterilely prepped and draped to the right leg and a standard direct lateral approach to hip was carried out. A guide pin was placed with the DHS guide into the central position of the head and then was fashioned to fit just superiorly to the DHS plate as there was not a reasonable combination option. Cables were passed around the femoral neck underneath the lesser trochanter. The plate was temporarily fixed with a holding screw and then wires were tensioned holding the trochanter down and in place. The guide pin was then measured and the lag screw hole was drilled, tapped and 105 mm lag screw was placed. Four-hole sideplate was placed and then it was screwed to the shaft with 42 and 44 mm cortical screws. At this point the trochanteric plate was further fixated into the femoral neck and head with 6.5 mm cancellous screws. Once the final position was checked and hardware was satisfactory the wounds were irrigated and closed in layers. The patient was transferred to the recovery room in stable condition having tolerated the procedure well. Job ID: [id number] DocumentID: [id number] Dictated Date: 03/04/2017 17:53:44 Junior Underwriter Date: 03/05/2017 09:26:09 Dictated By: LYDIA DELUNA MD
--- NOTE | 2017-03-05 10:23 | Physical Therapy Evaluation ---
PT Evaluation-General Medical Diagnosis Admission Date Mar 03, 2017 at 15:08 Medical Diagnosis: Hip fx Onset Date: Mar 03, 2017 Therapy Diagnosis Therapy Diagnosis: weakness, mobility impairments Height/Weight Height (Feet): 6 Height (Inches): 1.00 Weight (Pounds): 178 Weight (Ounces): 0.0 Precautions Precautions/Isolations: Fall Prevention, Standard Precautions Weight Bear Status Right Lower Extremity: Right Weight Bearing/Tolerated Referral Physician: Derek Mendez Reason for Referral: Evaluation/Treatment Medical History Pertinent Medical History: Smoking Additional Medical History Surg: Hernia repair Current History Fell off [employer] 03/03, admitted to ER for R greater trochanteric hip fx Reviewed History: Yes Social History Home: Single Level Current Living Status: Significant Other Entry Into Home: Level Entry Prior/Core FIM Prior Level of Function Functional [place] Measure 0=Not Assessed/NA 4=Minimal Assistance 1=Total Assistance 5=Supervision or Setup 2=Maximal Assistance 6=Modified [place] 3=Moderate Assistance 7=Complete [place] Bed Mobility: 7 Transfers (B,C,W/C) (FIM): 7 Gait: 7 Locomotion: 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 Pt was sitting at EOB with nurse call, phone, all needs met post tx, family in room. Pain Numeric Pain Scale: 5-Moderate Pain Location Body Site: Thigh (right) Pain Description: Ache Pt/Family Goals To return home with independence with mobility Objective Patient Orientation: Normal For Age Attachments: IV ROM/Strength Strenght Lower Extremities Left LE grossly 5/5 throughout all motions. Right LE not tested due to fx. Neuromuscular (Tone, Coordination, Reflexes) not tested Sensory Vision: Functional Hearing: Functional Sensation Right Upper Extremit: Intact Sensation Left Upper Extremity: Intact Sensation Right Lower Extremit: Intact Sensation Left Lower Extremity: Intact Transfers Functional [place] Measure 0=Not Assessed/NA 4=Minimal Assistance 1=Total Assistance 5=Supervision or Setup 2=Maximal Assistance 6=Modified [place] 3=Moderate Assistance 7=Complete [place] Transfers (B, C, W/C) (FIM): 6 Scootin Rollin Supine to/from Sit: 6 Sit to/from Stand: 6 Gait Mode of Locomotion: Walk Anticipated Mode of Locomotion: Walk Gait (FIM): 5 Distance (FIM): 3=150 ft Distance: 250' Gait Level of Assist: 5 Gait Persons Needed: 1 Gait Assistive Device: FWW Comments/Gait Description Pt ambulates 250' with supervision for safety. Pt uses FWW and has slow, antalgic gait. Pt appears steady and has no LOB. Balance Sitting Static: Good Sitting Dynamic: Good Standing Static: Good Standing Dynamic: Good Treatment Pt completes (GS, LAQ, hip flexion and adduction exercises in sitting position) x10 for functional LE strengthening. Assessment/Needs Pt has decreased strenth, gait and activity tolerance due to fx and pain. Rehab Potential: Good PT Short Term Goals Short Term Goals Time Frame: Mar 12, 2017 Transfers (B,C,W/C) (FIM): 7 Gait (FIM): 6 Distance (FIM): 3=150 ft Gait Distance Comment: 450' Gait Level of Assist: 6 Gait Assistive Device: FWW Stairs (FIM): 6 # of Steps: 4 Stairs Level of Assist: 6 PT Plan Problem List Problem List: Activity Tolerance, Functional Strength, Safety, Balance, Gait, Transfer, ROM Treatment/Plan Treatment Plan: Continue Plan of Care Treatment Plan: Bed Mobility, Education, Functional Activity Edd, Functional Strength, Gait, Therapeutic Exercise, Transfers Treatment Duration: Mar 12, 2017 Frequency: 11 times per week Estimated Hrs Per Day: .25 hour per day (15-30') Patient and/or Family Agrees t: Yes Safety Risks/Education Patient Education: Gait Training, Transfer Techniques, Reviewed Precautions, Correct Positioning, Safety Issues Teaching Recipient: Patient Teaching Methods: Demonstration, Discussion Response to Teaching: Verbalize Understanding, Reinforcement Needed Discharge Recommendations Plan Patient will perform bed mobility and transfer training, balance and endurance training, functional strengthening, stair training, gait training, and education , to improve functional mobility and independence at home. Therapy D/C Recommendations: Home w/ Family Support Time/GCodes Time In: 1000 Time Out: 1016 Total Billed Treatment Time: 16 Total Billed Treatment 1 visit 16 EVL G Codes Necessary: Yes PT/OT Therapy GCodes Therapy Functional Limitation: Physical Therapy Test(s)/Tool used to determine: Level of Assistance Scale Functional Limitation-Current Charge Code: MOBCUR Modifier: CI Functional Limitation-Goal Charge Code: MOBGOAL Modifier: CI MURIEL CASTLE PT Mar 05, 2017 10:23
--- NOTE | 2017-03-05 11:09 | Progress Note-Hospitalist ---
Progress Note HPI/CC on Admission CC: Right closed greater trochanteric fracture in need of surgery HPI: This is a 56-year-old white male without a local physician that is [place] [address] [place] that has no past medical history the presents following a fall off a tractor trailer when he was loading things up from the bridgework and suffered a right greater trochanteric fracture in need of surgery today at 3 p.m. He reports that he is feeling okay other than pain and denies any chest pain or shortness of breath. He does smoke but he does not drink an excessive amount of alcohol every day but he does drink in excess of 1 week and night once weekly. Progress Notes/Assess & Plan Date Seen 03/05/17 Time Seen by Provider: 10:00 Admission Dx/Process Assessment: s/p right closed greater trochanteric fracture Smoker Alcohol use but does not appear to be at risk for withdrawal Diagonsis/Assessment & Plan Patient doing much better and pain is controlled with pain medication Had an uncomplicated surgery yesterday Hemoglobin did drop but nothing severe enough to require transfusion Walking with physical therapy and doing very well Using IS and up to 3500 No BM yet Urinating fine No fever, vital signs stable, pleasant, improved, at bedside Regular rate and rhythm, clear to auscultation bilaterally no wheezing noted No edema Laboratory Tests 03/05/17 05:56 Assessment: s/p right closed greater trochanteric fracture POD # 1 Smoker Alcohol use but does not appear to be at risk for withdrawal Post op anemia due to acute blood loss from surgery and hip fracture Plan: IS Check labs in am JOSE MILLIGAN DO Mar 05, 2017 11:09
[2017-03-05 12:00] VITALS: BP 130/81
--- NOTE | 2017-03-05 13:41 | Occupational Therapy Eval ---
OT Evaluation-General/PLF Medical Diagnosis Admission Date Mar 03, 2017 at 15:08 Medical Diagnosis: R Hip fx Onset Date: Mar 03, 2017 Therapy Diagnosis Therapy Diagnosis: decr self care Height/Weight Height (Feet): 6 Height (Inches): 1.00 Weight (Pounds): 178 Weight (Ounces): 0.0 Precautions Precautions/Isolations: Fall Prevention, Standard Precautions Safety Interventions: None Weight Bear Status Weight Bearing Restriction: Weight Bearing/Tolerated Location Restriction: RT FOOT "No weight bearing restrictions" Referral Physician: Derek Mendez Referral Reason: Evaluation/Treatment Medical History Pertinent Medical History: Smoking Additional Medical History Hernia repair Current History Pt jumped off the back of a trailer, leg gave out and landed on R side. ORIF R hip on 03-04-17 Reviewed History: Yes Social History Home: Single Level Current Living Status: Significant Other Entry Into Home: Level Entry ADL-Prior Level of Function ADL PLOF Comments Pt reported that he was previously able to manage all of his basic self care needs, chores around the home and work. 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 Pt reported he was in pain but did not rate or describe it. He put admissions assistant light for pain meds Appearance Alert, cooperative Mental Status/Objective Attachments: Saline Lock (x 2) Current Glasses/Contacts: Yes Hand Dominance: Right Upper Extremity ROM Grossly WFL bilat Upper Extremity Strength Grossly 5/5 bilat ADL-Treatment ADL-Current Pt reported that he got a shower this morning and did most of it himself except that his rinsed him off. He used he grab bars when standing. He can use the urinal himself but needs help emptying it. He has not been on the toilet yet but will probably need a BSC over toilet for the arm rests. Functional [place] Measure 0=Not Assessed/NA 4=Minimal Assistance 1=Total Assistance 5=Supervision or Setup 2=Maximal Assistance 6=Modified [place] 3=Moderate Assistance 7=Complete IndependenceIRFPAI Quality Coding Scale 6 Independent with activity with or without an assistive device 5 Patient requires set up or clean up by helper. Patient completes activity by themselves 4 Supervision or touching assist (CGA). [place] provide cues , steadying assist 3 The helper provides less than half the effort to complete the activity 2 The helper provides more than half the effort to complete the activity 1 Dependent. The helper does all the effort to complete an activity 7 Patient refused to complete or attempt activity 9 The patient did not perform the activity before the current illness or injury 88 Not attempted due to Medical conditions or safety concerns Pt and spouse education on adapted equipment for discharge. Will most likely need BSC for use over the toilet to raise it up and provide arm rests. Will also need transfer tub bench to be able to get in/out of tub. Pt educ modified techniques for dressing and adapted equipment for dressing, including sock aid. He said that his mother has a walker and BSC that he can use. Information on BSC and transfer tub bench written on white board in room and pt shown picture of one. Pt left up in bed, all needs met. Anticipates discharge tomorrow. Other Treatments Pt walked 250 feet this am with SBA, FWW with PT. Education OT Patient Education: Modified ADL techniques, Purpose of tx/functional activities, Rehab process, Safety issues, Transfer techniques, Use of adapted equipment Teaching Recipient: Patient, Significant Other Teaching Methods: Discussion Response to Teaching: Verbalize Understanding OT Reed Fixer Goals Reed Fixer Goals Time Frame: Mar 08, 2017 Bathing(FIM): 5 Upper Body Dressing(FIM): 6 Lower Body Dressing(FIM): 6 Toileting(FIM): 6 Toilet/Commode Transfer(FIM): 6 Shower Transfer(FIM): 5 Additional Goals: 1-Demonstrate ADL Tasks, 2-Verbalize Understanding, 3- ImproveStrength/Edd 1=Demonstrate adherence to instructed precautions during ADL tasks. 2=Patient will verbalize/demonstrate understanding of assistive devices/ modifications for ADL. 3=Patient will improve strength/tolerance for activity to enable patient to perform ADL's. OT Education/Plan Problem List/Assessment Assessment: Dependent Transfers, Impaired Self-Care Skills Pt would benefit from skilled OT to increase his independence in basic self care to allow him to safely return to his home or hotel after a fall and repair hip fx. Discharge Recommendations Plan/Recommendations: Continue POC Treatment Plan/Plan of Care Treatment,Training & Education: Yes Patient would benefit from OT for education, treatment and training to promote independence in ADL's, mobility, safety and/or upper extremity function for ADL' s. Plan of Care: ADL Retraining Treatment Duration: Mar 08, 2017 Frequency: 4 times per week Estimated Hrs Per Day: .5 hour per day Agreement: Yes Rehab Potential: Good Time/GCodes Start Time: 13:05 Stop Time: 13:25 Total Time Billed (hr/min): 20 Billed Treatment Time visit, 10 minutes evaluation low intensity, 10 minutes ADL PT/OT Therapy GCodes Therapy Functional Limitation: Physical Therapy Test(s)/Tool used to determine: Level of Assistance Scale Functional Limitation-Current Charge Code: MOBCUR Modifier: ROGER Functional Limitation-Goal Charge Code: MOBGOAL Modifier: AQUILINO JOINER OT Mar 05, 2017 13:41
--- NOTE | 2017-03-05 14:00 | Anesthesia-General Post-Op ---
General Patient Condition Mental Status/LOC: Same as Preop Cardiovascular: Satisfactory Nausea/Vomiting: Absent Respiratory: Satisfactory Pain: Controlled Complications: Absent Post Op Complications Complications None Follow Up Care/Instructions Patient Instructions None needed. Anesthesia/Patient Condition Patient Condition Patient is doing well, no complaints, stable vital signs, no apparent adverse anesthesia problems. No complications reported per nursing. HEIDI CHRISTIE CRNA Mar 05, 2017 14:00
--- NOTE | 2017-03-05 14:18 | Physical Therapy Daily Note ---
PT Daily Note-Current Subjective Pt laying Supine in bed upon arrival. Pt agrees to PT and reports will discharge tomorrow. Pain Numeric Pain Scale: 7 Location: Right Location Body Site: Hip Pain Description: Ache Mental Status Patient Orientation: Person, Place, Time, Situation Attachments: IV Transfers Functional [place] Measure 0=Not Assessed/NA 4=Minimal Assistance 1=Total Assistance 5=Supervision or Setup 2=Maximal Assistance 6=Modified [place] 3=Moderate Assistance 7=Complete IndependenceIRFPAI Quality Coding Scale 6 Independent with activity with or without an assistive device 5 Patient requires set up or clean up by helper. Patient completes activity by themselves 4 Supervision or touching assist (CGA). [place] provide cues , steadying assist 3 The helper provides less than half the effort to complete the activity 2 The helper provides more than half the effort to complete the activity 1 Dependent. The helper does all the effort to complete an activity 7 Patient refused to complete or attempt activity 9 The patient did not perform the activity before the current illness or injury 88 Not attempted due to Medical conditions or safety concerns Scootin Supine to/from Sit: 4 Sit to/from Stand: 5 Weight Bearing Right Lower Extremity: Right Weight Bearing/Tolerated Gait Training Distance (FIM): 3=150 ft Distance: 175' Gait Level of Assist: 5 Gait Persons Needed: 1 Gait Assistive Device: FWW Treatments Pt transferred from Supine to EOB at CGA-Min A to advance RLE to EOB then EOB to standing at SBA. Pt ambulated in hallway using FWW at SBA to manage IV pole. Pt returned to room to rest Supine in bed due to fatigue and pain in R hip. Pt and Pt's GF asked about what EX pt could do at home so PT showed Supine & Seated Ex. PT was also asked about restrictions or WB so Pt advised WB status and no restrictions. Pt resting in bed at end of tx with all needs met. Assessment Current Status: Good Progress Pt fatigues but has improved with transfers and ambulation. Pt should discharge tomorrow. PT Short Term Goals Short Term Goals Time Frame: Mar 12, 2017 Gait (FIM): 6 Distance (FIM): 3=150 ft Gait Distance Comment: 450' Gait Level of Assist: 6 Gait Assistive Device: FWW Stairs (FIM): 6 # of Steps: 4 Stairs Level of Assist: 6 PT Plan Problem List Problem List: Activity Tolerance, Functional Strength, Gait Treatment/Plan Treatment Plan: Continue Plan of Care Treatment Plan: Bed Mobility, Education, Functional Activity Edd, Functional Strength, Gait, Therapeutic Exercise, Transfers Treatment Duration: Mar 12, 2017 Frequency: 11 times per week Estimated Hrs Per Day: .25 hour per day (15-30') Patient and/or Family Agrees t: Yes Safety Risks/Education Patient Education: Gait Training, Transfer Techniques, Correct Positioning, Safety Issues Teaching Recipient: Patient, Significant Other Teaching Methods: Discussion Response to Teaching: Verbalize Understanding Time/GCodes Time In: 1325 Time Out: 1400 Total Billed Treatment Time: 35 Total Billed Treatment visit, GT (20m) & FA (15m) PT/OT Therapy GCodes Therapy Functional Limitation: Physical Therapy Test(s)/Tool used to determine: Level of Assistance Scale Functional Limitation-Current Charge Code: MOBCUR Modifier: CI Functional Limitation-Goal Charge Code: MOBGOAL Modifier: PHILOMENA BROCK ENDOCRINOLOGY SPECIALIST Mar 05, 2017 14:18
[2017-03-05 16:00] VITALS: BP 132/74
[2017-03-05 16:18] VITALS: BP 132/74
[2017-03-06] VITALS: BP 128/73
[2017-03-06] MEDS: HYDROcodone/APAP 10 MG/325 MG (LORTAB) TAB PO PRN ×3 (05:57→14:14)
[2017-03-06] MEDS: NS IV 1000 ML 1,000 ML IV SCH (06:01)
[2017-03-06 06:06] LABS: BASOPHILS % (AUTO) 0 % (0-10); EOSINOPHILS # (AUTO) 0.1 10^3/uL (0.0-0.3); EOSINOPHILS % (AUTO) 1 % (0-10); LYMPHOCYTES # (AUTO) 0.8 X 10^3 (1.0-4.0); LYMPHOCYTES % (AUTO) 9 % (12-44); MEAN CORPUSCULAR HEMOGLOBIN 31 PG (25-34); MEAN CORPUSCULAR HGB CONC 33 G/DL (32-36); MEAN CORPUSCULAR VOLUME 94 FL (80-99); MEAN PLATELET VOLUME 12.7 FL (7.4-10.4); MONOCYTES # (AUTO) 1.2 X 10^3 (0.0-1.0); MONOCYTES % (AUTO) 13 % (0-12); NEUTROPHILS # (AUTO) 7.1 X 10^3 (1.8-7.8); NEUTROPHILS % (AUTO) 78 % (42-75); PLATELET COUNT 71 10^3/uL (130-400); RED BLOOD COUNT 3.14 10^6/uL (4.35-5.85); WHITE BLOOD COUNT 9.1 10^3/uL (4.3-11.0)
[2017-03-06 06:22] LABS: ALANINE AMINOTRANSFERASE 22 U/L (0-55); ALBUMIN 3.3 GM/DL (3.2-4.5); ANION GAP 7 MMOL/L (5-14); ASPARTATE AMINO TRANSFERASE 55 U/L (5-34); BILIRUBIN,TOTAL 0.7 MG/DL (0.1-1.0); BLOOD UREA NITROGEN 6 MG/DL (7-18); BUN/CREATININE RATIO 8; CARBON DIOXIDE 25 MMOL/L (21-32); CHLORIDE 103 MMOL/L (98-107); CREATININE SERUM 0.74 MG/DL (0.60-1.30); GFR ESTIMATED > 60; GLUCOSE 116 MG/DL (70-105); POTASSIUM 4.1 MMOL/L (3.6-5.0); SODIUM 135 MMOL/L (135-145); TOTAL PROTEIN 5.7 GM/DL (6.4-8.2)
[2017-03-06 08:33] VITALS: BP 157/76
[2017-03-06] MEDS ORDERED: NICOTINE PATCH REMOVAL TP SCH (08:59)
[2017-03-06] MEDS: NICOTINE 21 MG (NICODERM) PATCH TD SCH (09:25)
--- NOTE | 2017-03-06 09:36 | Physical Therapy Daily Note ---
PT Daily Note-Current Subjective Patient is up in room ad juan and agrees to PT. Pain Numeric Pain Scale: 5-Moderate Pain Location: Right Location Body Site: Hip Pain Description: Acute Mental Status Patient Orientation: Normal For Age Transfers Functional [place] Measure 0=Not Assessed/NA 4=Minimal Assistance 1=Total Assistance 5=Supervision or Setup 2=Maximal Assistance 6=Modified [place] 3=Moderate Assistance 7=Complete IndependenceIRFPAI Quality Coding Scale 6 Independent with activity with or without an assistive device 5 Patient requires set up or clean up by helper. Patient completes activity by themselves 4 Supervision or touching assist (CGA). [place] provide cues , steadying assist 3 The helper provides less than half the effort to complete the activity 2 The helper provides more than half the effort to complete the activity 1 Dependent. The helper does all the effort to complete an activity 7 Patient refused to complete or attempt activity 9 The patient did not perform the activity before the current illness or injury 88 Not attempted due to Medical conditions or safety concerns Transfers (B, C, W/C) (FIM): 6 Scootin Sit to/from Stand: 6 Weight Bearing Right Lower Extremity: Right Weight Bearing/Tolerated Gait Training Gait (FIM): 6 Distance (FIM): 3=150 ft Distance: >400' Gait Level of Assist: 6 Gait Assistive Device: FWW slow, antalgic gait sequence Stair Training Stair Training: Handrails/: 2 handrails Stairs (FIM): 5 #of Steps: 8 Stairs: Pattern: Step to Level of Assist: 5 Exercises Seated Therapy Exercises: Ankle pumps, Long arc quads Seated Reps: [address] Ex=Flex, Abd, Ext Standing Reps: 15 Assessment Current Status: Excellent Progress Patient to dismiss on this date. Patient is up ad juan in room and hallway without difficulty. Patient demonstrated exercises stair training appropriately. PT Short Term Goals Short Term Goals Time Frame: Mar 12, 2017 Gait (FIM): 6 Distance (FIM): 3=150 ft Gait Distance Comment: 450' Gait Level of Assist: 6 Gait Assistive Device: FWW Stairs (FIM): 6 # of Steps: 4 Stairs Level of Assist: 6 PT Plan Treatment/Plan Treatment Plan: Discontinue PT, goals met Treatment Plan: Bed Mobility, Education, Functional Activity Edd, Functional Strength, Gait, Therapeutic Exercise, Transfers Treatment Duration: Mar 12, 2017 Frequency: 11 times per week Estimated Hrs Per Day: .25 hour per day (15-30') Patient and/or Family Agrees t: Yes Discharge Recommendations Equpiment Recommendations-D/C: Front Wheeled Walker Time/GCodes Time In: 840 Time Out: 855 Total Billed Treatment Time: 15 Total Billed Treatment 1 visit FA 15 min PT/OT Therapy GCodes Therapy Functional Limitation: Physical Therapy Test(s)/Tool used to determine: Level of Assistance Scale Functional Limitation-Current Charge Code: MOBDARIN Modifier: ROGER Functional Limitation-Goal Charge Code: MOBESTEBAN Modifier: CI NELLIE CASTRO PT Mar 06, 2017 09:36
[2017-03-06] MEDS: diphenhydrAMINE 25 MG TAB (BENADRYL) PO PRN (09:57)
--- NOTE | 2017-03-06 10:35 | Occupational Ther Daily Note ---
OT Current Status-Daily Note Subjective Pt seen in room, agreeable to OT. No pain mentioned. Appearance Alert, cooperative Mental Status/Objective Functional [place] Measure 0=Not Assessed/NA 4=Minimal Assistance 1=Total Assistance 5=Supervision or Setup 2=Maximal Assistance 6=Modified [place] 3=Moderate Assistance 7=Complete [place] ADL-Treatment Pt took himself to the bathroom and managed clothing, hygiene and transfer from tall toilet with grab bar. Pt said he also dressed himself. Pt educ on way to use walker to push up out of a chair without arms or low toilet, if equipment not available. Pt and SO report that equipment has been ordered but they wondered if it would be covered by insurance. Referred to for payment questions. Pt has no other questions and feels confident in his abilities with his self care needs. Goals met to his satisfaction. Pt left up in chair with SO , all needs met. Education OT Patient Education: Modified ADL techniques, Purpose of tx/functional activities Teaching Recipient: Patient, Significant Other Teaching Methods: Demonstration Response to Teaching: Verbalize Understanding OT Short Term Goals Short Term Goals 1=Demonstrate adherence to instructed precautions during ADL tasks. 2=Patient will verbalize/demonstrate understanding of assistive devices/ modifications for ADL. 3=Patient will improve strength/tolerance for activity to enable patient to perform ADL's. OT Pipe Manufacture Supervisor Goals Pipe Manufacture Supervisor Goals Time Frame: Mar 08, 2017 Bathing(FIM): 5 Upper Body Dressing(FIM): 6 Lower Body Dressing(FIM): 6 Toileting(FIM): 6 Toilet/Commode Transfer(FIM): 6 Shower Transfer(FIM): 5 Additional Goals: 1-Demonstrate ADL Tasks, 2-Verbalize Understanding, 3- ImproveStrength/Edd 1=Demonstrate adherence to instructed precautions during ADL tasks. 2=Patient will verbalize/demonstrate understanding of assistive devices/ modifications for ADL. 3=Patient will improve strength/tolerance for activity to enable patient to perform ADL's. OT Education/Plan Problem List/Assessment Pt would benefit from skilled OT to increase his independence in basic self care to allow him to safely return to his home or hotel after a fall and repair hip fx. Discharge Recommendations Plan/Recommendations: Discharge/Goals Met (goals met to pt satisfaction) Treatment Plan/Plan of Care Patient would benefit from OT for education, treatment and training to promote independence in ADL's, mobility, safety and/or upper extremity function for ADL' s. Plan of Care: ADL Retraining Treatment Duration: Mar 08, 2017 Frequency: 4 times per week Estimated Hrs Per Day: .5 hour per day Agreement: Yes Rehab Potential: Good Time/GCodes Start Time: 08:30 Stop Time: 08:40 Total Time Billed (hr/min): 10 Billed Treatment Time visit, 10 minutes ADL PT/OT Therapy GCodes Therapy Functional Limitation: Physical Therapy Test(s)/Tool used to determine: Level of Assistance Scale Functional Limitation-Current Charge Code: MOBCUR Modifier: CI Functional Limitation-Goal Charge Code: MOBGOAL Modifier: AQUILINO JOINER OT Mar 06, 2017 10:35
[2017-03-06 12:27] LABS: MEAN PLATELET VOLUME 11.8 FL (7.4-10.4); RED BLOOD COUNT 3.07 10^6/uL (4.35-5.85); RED CELL DISTRIBUTION WIDTH 11.9 % (10.0-14.5)
[2017-03-06] MEDS ORDERED: NICO1PAT34 TD (12:40)
[2017-03-06] MEDS ORDERED: OXYC-471 PO (12:40)
--- NOTE | 2017-03-06 12:46 | Discharge Summary-Hospitalist ---
Diagnosis/Chief Complaint Date of Admission Mar 03, 2017 at 15:08 Date of Discharge March 06, 2017 Discharge Date: Mar 06, 2017 Discharge Time: 13:00 Admission Diagnosis Assessment: s/p right closed greater trochanteric fracture Smoker Alcohol use but does not appear to be at risk for withdrawal Discharge Diagnosis Right Hip Greater Trochanter Fracture/intertroch fracture Closed S/P ORIF tobaccoism Discharge Summary Procedures Right Hip Greater Trochanter Fracture/intertroch fracture Closed S/P ORIF Consultations Dr. Deluna Discharge Physical Examination Allergies: Coded Allergies: No Known Drug Allergies (Unverified , 03/03/17) Vitals & I&Os Vital Signs Date Time Temp Pulse Resp B/P (MAP) Pulse Ox O2 Delivery O2 Flow Rate FiO2 03/06/17 08:33 98.9 88 22 157/76 99 Room Air General Appearance: Alert, Oriented X3 HEENT: Atraumatic Respiratory: Clear to Auscultation Cardiovascular: Regular Rate, Normal S1, Normal S2 Abdominal: Normal Bowel Sounds, Soft Extremities: No Edema Neuro: Normal Speech Psych/Mental Status: Mental Status NL Hospital Course patient was admitted after falling and sustaining a right intertrochanteric hip fracture. He was seen in consultation by Dr. Deluna and underwent open reduction internal fixation of the same. His postop course was uncomplicated and he is currently ready to go home. NicoDerm patch was employed as the patient has a history tobaccoism. He was counseled about cessation techniques. Labs (last 24 hrs) Laboratory Tests 03/06/17 05:50: White Blood Count 9.1, Red Blood Count 3.14L, Hemoglobin 9.8L, Hematocrit 29L, Mean Corpuscular Volume 94, Mean Corpuscular Hemoglobin 31, Mean Corpuscular Hemoglobin Concent 33, Red Cell Distribution Width 12.0, Platelet Count 71L, Mean Platelet Volume 12.7H, Neutrophils (%) (Auto) 78H, Lymphocytes (%) (Auto) 9L, Monocytes (%) (Auto) 13H, Eosinophils (%) (Auto) 1, Basophils (%) (Auto) 0, Neutrophils # (Auto) 7.1, Lymphocytes # (Auto) 0.8L, Monocytes # (Auto) 1.2H, Eosinophils # (Auto) 0.1, Basophils # (Auto) 0.0, Sodium Level 135, Potassium Level 4.1, Chloride Level 103, Carbon Dioxide Level 25, Anion Gap 7, Blood Urea Nitrogen 6L, Creatinine 0.74, Estimat Glomerular Filtration Rate > 60, BUN/ Creatinine Ratio 8, Glucose Level 116H, Calcium Level 8.0L, Total Bilirubin 0.7 , Aspartate Amino Transf (AST/SGOT) 55H, Alanine Aminotransferase (ALT/SGPT) 22 , Alkaline Phosphatase 37L, Total Protein 5.7L, Albumin 3.3 03/06/17 12:20: White Blood Count 10.0, Red Blood Count 3.07L, Hemoglobin 9.5L, Hematocrit 28L, Mean Corpuscular Volume 93, Mean Corpuscular Hemoglobin 31, Mean Corpuscular Hemoglobin Concent 34, Red Cell Distribution Width 11.9, Platelet Count 128L, Mean Platelet Volume 11.8H Microbiology 03/03/17 MRSA Screen - Final, Complete MRSA not isolated Pending Labs Laboratory Tests 03/06/17 05:50: White Blood Count 9.1, Red Blood Count 3.14, Hemoglobin 9.8, Hematocrit 29, Mean Corpuscular Volume 94, Mean Corpuscular Hemoglobin 31, Mean Corpuscular Hemoglobin Concent 33, Red Cell Distribution Width 12.0, Platelet Count 71, Mean Platelet Volume 12.7, Neutrophils (%) (Auto) 78, Lymphocytes (%) (Auto) 9, Monocytes (%) (Auto) 13, Eosinophils (%) (Auto) 1, Basophils (%) (Auto) 0, Neutrophils # (Auto) 7.1, Lymphocytes # (Auto) 0.8, Monocytes # (Auto) 1.2, Eosinophils # (Auto) 0.1, Basophils # (Auto) 0.0, Sodium Level 135, Potassium Level 4.1, Chloride Level 103, Carbon Dioxide Level 25, Anion Gap 7, Blood Urea Nitrogen 6, Creatinine 0.74, Estimat Glomerular Filtration Rate > 60, BUN/ Creatinine Ratio 8, Glucose Level 116, Calcium Level 8.0, Total Bilirubin 0.7, Aspartate Amino Transf (AST/SGOT) 55, Alanine Aminotransferase (ALT/SGPT) 22, Alkaline Phosphatase 37, Total Protein 5.7, Albumin 3.3 03/06/17 12:20: White Blood Count 10.0, Red Blood Count 3.07, Hemoglobin 9.5, Hematocrit 28, Mean Corpuscular Volume 93, Mean Corpuscular Hemoglobin 31, Mean Corpuscular Hemoglobin Concent 34, Red Cell Distribution Width 11.9, Platelet Count 128, Mean Platelet Volume 11.8 Discharge Home Medications: Active Scripts Active Nicoderm Cq (Nicotine) 1 Each Patch.td24 1 Each TD DAILY 30 Days Oxycodone-Acetaminophen 5-325 (Oxycodone HCl/Acetaminophen) 1 Each Tablet 1 Each PO Q4H PRN Condition at discharge stable Instructions to patient/family Please see electronic discharge instructions given to patient. Clinical Quality Measures DVT/VTE Risk/Contraindication: Risk Factor Score Per Nursin RFS Level Per Nursing on Admit: 4+=Very High MAZIN BECK MD Mar 06, 2017 12:46
== END 2017-03-06 15:25 | disposition home or self-care (01) | DRG 481 ==
LOC: EDUNIT# 09:03 → ER 09:05 → 4TH 15:08 → OBSVTOIN 15:08
PROVIDERS: ADMIT Internal Medicine; ATTEND Internal Medicine
PROC: 0QH604Z Insertion of Internal Fixation Device into Right Upper Femur, Open Approach (ICD-10-PCS; 2017-03-04)
PROC: 0QS604Z Reposition Right Upper Femur with Internal Fixation Device, Open Approach (ICD-10-PCS; principal; 2017-03-04 15:30)
DX: S72.111A Displaced fracture of greater trochanter of right femur, initial encounter for closed fracture (principal); S72.144A Nondisplaced intertrochanteric fracture of right femur, initial encounter for closed fracture; D62 Acute posthemorrhagic anemia; F17.210 Nicotine dependence, cigarettes, uncomplicated; S50.311A Abrasion of right elbow, initial encounter; V68.1XXA Passenger in heavy transport vehicle injured in noncollision transport accident in nontraffic accident, initial encounter; Y92.69 Other specified industrial and construction area as the place of occurrence of the external cause; Y99.0 Civilian activity done for income or pay; Z72.89 Other problems related to lifestyle; Z23 Encounter for immunization
CPT/HCPCS: 36415; 73502; 73700; 80048; 80053; 80306; 81000; 85025; 85027; 87081; 94664; 96372; 96374; G0378